=== PATIENT | female | born 1985 | race Two or more races ===

== ENCOUNTER 2017-09-21 11:34 | Inpatient (IN) | payer OTHER ==
[~2017-09-21] VITALS: Ht 157.5 cm; Wt 59.9 kg
[~2017-09-21 11:34] MED LIST: RELAFEN500 MG PO
[2017-10-18] MEDS ORDERED: PRENATAL + DHA1 EAC1 PO (08:22)
== END 2017-10-20 10:22 | DRG 775 ==
LOC: LDR 10-17 11:45 → SURG-SUITE 10-18 06:26 → LDR 10-18 06:26 → OB/GYN 10-18 18:46 → SURG-SUITE 10-18 19:55
PROC: 0UQGXZZ Repair Vagina, External Approach (ICD-10-PCS; principal; 2017-10-18)
PROC: 0W8NXZZ Division of Female Perineum, External Approach (ICD-10-PCS; 2017-10-18)
PROC: 10D07Z6 Extraction of Products of Conception, Vacuum, Via Natural or Artificial Opening (ICD-10-PCS; 2017-10-18)
PROC: 4A1HXCZ Monitoring of Products of Conception, Cardiac Rate, External Approach (ICD-10-PCS; 2017-10-18)
PROC: 4A033R1 Measurement of Arterial Saturation, Peripheral, Percutaneous Approach (ICD-10-PCS; 2017-10-18)
DX: O71.4 Obstetric high vaginal laceration alone (principal); O69.81X0 Labor and delivery complicated by cord around neck, without compression, not applicable or unspecified; Z37.0 Single live birth; O48.0 Post-term pregnancy; Z3A.40 40 weeks gestation of pregnancy

== ENCOUNTER 2017-09-28 10:51 | Outpatient (CLI) | payer OTHER | END 2017-09-28 12:45 | disposition home or self-care (01) | LOC: NST 10:51 | DX: Z34.83 Encounter for supervision of other normal pregnancy, third trimester (principal) ==